=== PATIENT | male | born 1940 | race Caucasian/White ===

== ENCOUNTER → 2016-08-23 | Outpatient (CLI) | payer OTHER, BC | LOC: BHFA 10:15 | PROVIDERS: ATTEND Internal Medicine Cardiovascular Disease | DX: I48.91 Unspecified atrial fibrillation (principal); I48.92 Unspecified atrial flutter ==

== ENCOUNTER 2016-08-24 13:20 | Day surgery (SDC) | payer OTHER, BC ==
[2016-08-24] MEDS ORDERED: NS 500 ML IV ONE (13:27)
[2016-08-24] MEDS ORDERED: MIDAZOLAM 2 MG/2 ML VIAL IVP ONE (13:27)
[2016-08-24] MEDS ORDERED: BENZOCAINE UNIT DOSE SPRAY HURRICAINE MM ONE (13:27)
[2016-08-24] MEDS ORDERED: PROPOFOL 200 MG/20 ML VIAL IVP ONE (13:27)
[2016-08-24] MEDS ORDERED: fentaNYL 100 MCG/2 ML INJ IVP ONE (13:27)
--- NOTE | 2016-08-24 14:00 | CPEKG ---
Heart Rate: 106 RR Interval: 566 QRSD Interval: 90 QT Interval: 356 QTC Interval: 473 QRS [place]: -33 T Wave [place]: -9 EKG Severity - ABNORMAL ECG - EKG Impression: ATRIAL FIBRILLATION, V-RATE 79-134 EKG Impression: LEFT AXIS DEVIATION Electronically Signed By: Cash Costa 24-Aug-2016 14:38:16
[2016-08-24] MEDS ORDERED: ATROPINE SULFATE 1 MG/10 ML SYR ONE (14:14)
[2016-08-24 14:31] LABS: INR 1.35 (0.83-1.16); PROTIME(PATIENT) 16.7 SEC (12.0-15.0)
[2016-08-24 15:03] LABS: ANION GAP 13 mEq/L (8-16); CALCIUM 9.7 mg/dL (8.5-10.4); CARBON DIOXIDE 24 mEq/l (22-31); CHLORIDE 105 mEq/L (97-110); CREATININE 1.1 mg/dL (0.7-1.3); GLOMERULAR FILTRATION RATE > 60; GLUCOSE 91 mg/dL (70-100); MAGNESIUM 2.2 mg/dL (1.6-2.3); POTASSIUM 4.4 mEq/L (3.5-5.2); SODIUM 142 mEq/L (134-144)
[2016-08-24] MEDS ORDERED: LIDOCAINE 2% 5 ML SDV ONE (15:31)
[2016-08-24] MEDS ORDERED: PROPOFOL 200 MG/20 ML VIAL ONE (15:32)
--- NOTE | 2016-08-25 07:52 | CPEKG ---
Heart Rate: 69 RR Interval: 870 P-R Interval: 188 QRSD Interval: 96 QT Interval: 432 QTC Interval: 463 P [place]: 48 QRS [place]: -26 T Wave [place]: 26 EKG Severity - BORDERLINE ECG - EKG Impression: SINUS RHYTHM EKG Impression: VENTRICULAR PREMATURE COMPLEX EKG Impression: INTERPOLATED VENTRICULAR PREMATURE COMPLEX EKG Impression: BORDERLINE LEFT AXIS DEVIATION Electronically Signed By: Cash Costa 25-Aug-2016 12:13:17
--- NOTE | 2016-08-26 10:48 | EPPROC ---
Electrophysiology Procedure Note: Procedure: CV Indication: AF Procedure: pt sedated with help of anesthesia staff. Once sedated, DCCV of 200J given. pt converted to sinus rhythm. Conclusion: Successful CV
== END 2016-08-24 17:00 | disposition home or self-care (01) ==
LOC: FCATH 13:20
PROVIDERS: ATTEND Internal Medicine Cardiovascular Disease
PROC: 5A2204Z Restoration of Cardiac Rhythm, Single (ICD-10-PCS; principal; 2016-08-24)
DX: I48.1 Persistent atrial fibrillation (principal); Z79.01 Long term (current) use of anticoagulants; G47.33 Obstructive sleep apnea (adult) (pediatric)
CPT/HCPCS: J0461; J2704

== ENCOUNTER → 2016-09-14 | Outpatient (CLI) | payer OTHER, BC | LOC: BHFA 10:30 | PROVIDERS: ATTEND Internal Medicine Cardiovascular Disease | DX: I48.91 Unspecified atrial fibrillation (principal); I48.92 Unspecified atrial flutter ==

== ENCOUNTER → 2016-10-17 | Outpatient (CLI) | payer OTHER, BC | LOC: FIMAGING 10:59 | PROVIDERS: ATTEND Family Medicine | DX: Z13.820 Encounter for screening for osteoporosis (principal); S32.000D Wedge compression fracture of unspecified lumbar vertebra, subsequent encounter for fracture with routine healing ==

== ENCOUNTER 2016-11-04 08:27 | Emergency (ER) | payer OTHER, BC ==
[2016-11-04 08:52] VITALS: BP 121/84; PULSE 83; RESP 16; TEMP 98.1; O2SAT 96
--- NOTE | 2016-11-04 09:24 | EDPHY ---
H & P Stated Complaint: cough x 2 weeks dx with pneumonia Time Seen by Provider: 11/04/16 08:54 HPI/ROS: Chief Complaint: Cough HPI: 76-year-old male with a history of atrial fibrillation presenting with 2 weeks of upper respiratory symptoms including cough. was seen here 2 days ago was diagnosed with pneumonia on her chest x-ray. He has had the same symptoms which have been worsening over the last 2 days. His cough is productive of greenish sputum. Some subjective fevers and chills but has not measured his temperature at home. No body aches. No chest pain. Some mild shortness of breath when coughing. No dyspnea on exertion. He is concerned because her going out of town tomorrow to go to cover any look after there 14- month-old grandchild. ROS: 10 point Review of Systems is negative except as noted in the HPI. PMH: Atrial fibrillation Medications: New line Eliquis, diltiazem Allergies: No known drug allergies Social History: No smoking, no alcohol, no recreational drug use Family History: non-contributory Physical Exam: Gen: Awake, Alert, No Distress HEENT: Nose: no rhinorrhea Eyes: PERRLA, EOMI Mouth: Moist mucosa Neck: Supple, no JVD Chest: nontender, course breath sounds with no focal rales or rhonchi. Heart: S1, S2 normal, no murmur Abd: Soft, non-tender, no guarding Back: no CVA tenderness, no midline tenderness Ext: no edema, non-tender Skin: no rash Neuro: CN II-XII intact, Sensation grossly intact, Strength 5/5 in bilateral upper and lower extremities - Personal History Current Tetanus Diphtheria and Acellular Pertussis (TDAP): Yes - Medical/Surgical History Hx Asthma: No Hx Chronic Respiratory Disease: No Hx Diabetes: No Hx Cardiac Disease: No Hx Renal Disease: No Hx Cirrhosis: No Hx Alcoholism: No Hx HIV/AIDS: No Hx Splenectomy or Spleen Trauma: No Other PMH: tinnitis/depression/gout/hernia/appy/afib - Social History Smoking Status: Former smoker Constitutional: Initial Vital Signs Temperature (C) 36.7 C 11/04/16 08:50 Heart Rate 83 11/04/16 08:50 Respiratory Rate 16 11/04/16 08:50 Blood Pressure 121/84 H 11/04/16 08:50 O2 Sat (%) 96 11/04/16 08:50 O2 Delivery Mode Room Air Allergies/Adverse Reactions: No Known Allergies Allergy (Unverified 04/07/15 12:57) Home Medications: Medication Instructions Recorded Allopurinol 300 mg PO DAILY 11/26/14 Sertraline HCl 50 mg PO DAILY 11/26/14 Eliquis 5 mg PO BID 04/05/16 Dilt-Xr 120 mg PO DAILY 08/24/16 Fluticasone Nasal 50 - 100 mcg NASAL ONCE 08/24/16 Latanoprost OP 08/24/16 Vitamin D3 1,000 units PO DAILY 08/24/16 AZITHROMYCIN [Z-PACK] 250 mg PO DAILY #6 tab 11/04/16 Medical Decision Making ED Course/Re-evaluation: 76-year-old male with symptoms of bronchitis. He has a history of atrial fibrillation and therefore is at greater risk of complications. Lungs are clear and he is not hypoxic here. Will start him on antibiotics to treat bronchitis. He will follow up with primary care physician in 4-5 days if symptoms are not improving. Departure - Departure Disposition: Home, Routine, Self-Care Clinical Impression: Acute bronchitis Condition: Good Instructions: Acute Bronchitis (ED) Additional Instructions: Please take her full course of antibiotics. Follow up with primary care physician in 4-5 days if symptoms are not improving. Return to the emergency depart for increasing chest pain, shortness of breath, fevers, chills, or any other concerns. Referrals: Lakisha Magana MD [Primary Care Provider] - As per Instructions Prescriptions: AZITHROMYCIN [Z-PACK] 250 mg PO DAILY #6 tab
== END 2016-11-04 09:40 | disposition home or self-care (01) ==
LOC: CED 08:27
DX: J20.9 Acute bronchitis, unspecified (principal); Z79.01 Long term (current) use of anticoagulants; Z87.891 Personal history of nicotine dependence